=== PATIENT | female | born 1980 | race Caucasian/White ===

== ENCOUNTER 2017-06-25 14:40 | Emergency (ER) | payer MEDICAID ==
[~2017-06-25] VITALS: Ht 154.9 cm; Wt 100.0 kg
[~2017-06-25 14:40] MED LIST: ACYC-101 PO; BUPR150T3 PO; HYDR-3133 PO; LAMO100T PO; LORA10TA PO; METF500T4 PO; PANT40TA3 PO; TRAZ50TA12 PO; TRIA.1%T TOP
[2017-06-25] MEDS ORDERED: IOHEXOL 350 MG/ML 10 ML VIAL (for RAD DIAG) IVCONTRAST ONE (14:41)
[2017-06-25 14:42] VITALS: BP 143/82; PULSE 88; RESP 16; TEMP 98.5; O2SAT 96
[2017-06-25] MEDS ORDERED: TRAM50TA PO (15:30)
[2017-06-25] MEDS ORDERED: SODIUM CHLOR 0.9% 1000 ML INJ 1,000 ML IV ONE (15:38)
[2017-06-25] MEDS ORDERED: SODIUM CHLORIDE 0.9% FLUSH 10 ML FLUSH IVF PRN (15:45)
[2017-06-25] MEDS ORDERED: ONDANSETRON HCL 4 MG/2 ML VIAL IV PUSH ONE (15:45)
[2017-06-25 16:22] LABS: AUTOMATED NEUTROPHIL # 3.7 TH/MM3 (1.8-7.7); BASOPHIL # 0.1 TH/MM3 (0-0.2); EOSINOPHIL # 0.1 TH/MM3 (0-0.4); EOSINOPHIL % 1.4 % (0.0-4.0); HEMATOCRIT 34.9 % (35.0-46.0); HEMOGLOBIN 12.4 GM/DL (11.6-15.3); LYMPH % 33.2 % (9.0-44.0); LYMPHOCYTE # 2.2 TH/MM3 (1.0-4.8); MEAN CELL VOLUME 82.2 FL (80.0-100.0); MEAN CORPUSCULAR HEMOGLOBIN 29.1 PG (27.0-34.0); MEAN CORPUSCULAR HGB CONC 35.4 % (32.0-36.0); MEAN PLATELET VOLUME 9.3 FL (7.0-11.0); MONO % 7.4 % (0.0-8.0); MONOCYTE # 0.5 TH/MM3 (0-0.9); PLATELET COUNT 333 TH/MM3 (150-450); RED BLOOD COUNT 4.24 MIL/MM3 (4.00-5.30); RED CELL DISTRIBUTION WIDTH 14.1 % (11.6-17.2); WHITE BLOOD COUNT 6.5 TH/MM3 (4.0-11.0)
[2017-06-25 16:25] LABS: BILIRUBIN, URINE NEG (NEG); BLOOD, URINE LARGE (NEG); CALCIUM OXALATE CRYSTALS,URINE MOD /hpf; GLUCOSE,URINE NEG (NEG); KETONE, URINE TRACE mg/dL (NEG); MUCUS URINE FEW /lpf (OCC); NITRITE,URINE NEG (NEG); PH, URINE 5.5 (5.0-8.5); URINE COLOR YELLOW (YELLW/STRAW); URINE LEUKOCYTE ESTERASE NEG (NEG)
[2017-06-25 16:35] LABS: ALBUMIN 3.3 GM/DL (3.4-5.0); ALT (GPT) 88 U/L (10-53); AST (GOT) 68 U/L (15-37); BLOOD UREA NITROGEN 5 MG/DL (7-18); CALCIUM 8.4 MG/DL (8.5-10.1); CHLORIDE 108 MEQ/L (98-107); CREATININE 1.01 MG/DL (0.50-1.00); GLOMERULAR FILTRATION RATE 62 ML/MIN (>89); GLUCOSE,RANDOM 126 MG/DL (74-106); SODIUM (NA) 139 MEQ/L (136-145)
[2017-06-25 16:37] LABS: ALKALINE PHOSPHATASE 114 U/L (45-117); TOTAL BILIRUBIN ADULT 0.3 MG/DL (0.2-1.0)
--- NOTE | 2017-06-25 17:08 | PD ---
HPI Chief Complaint: Complaint Time Seen by Provider: 15:28 Travel History International Travel<30 days: No Contact w/Intl Traveler<30days: No Traveled to known affect area: No History of Present Illness HPI Patient is a 37-year-old female presenting to the emergency department evaluation of lower abdominal pain and cloudy urine. Patient states lower abdominal/pelvic pain started this morning at 9 AM, she rates it an 8 out of 10 , there are no alleviating or exacerbating factors. The pain is aching and sharp . She states the urine has been cloudy for a few days. She reports feeling nauseated but denies any fever, chills, vomiting or constipation. She reports that she was diagnosed with a kidney stone 3 weeks ago and feels as if she is passing one again. This was evaluated in [facility] 3 weeks ago. Past medical history significant for kidney stones, PCOS, hepatitis C. PFSH Past Medical History ADHD: Yes Bipolar Disorder: Yes Anxiety: Yes Depression: Yes High Cholesterol: Yes Diabetes: Yes Patient Takes Glucophage: Yes Hepatitis: Yes (C) Hypertension: Yes Immunizations Current: Yes Tetanus Vaccination: Unknown Influenza Vaccination: No ?: Not LMP: 06/15/17 Tubal Ligation: Yes Past Surgical History Cholecystectomy: Yes Other Surgery: Yes (breast reduction) Social History Alcohol Use: Yes (OCC) Tobacco Use: Yes Substance Use: No Allergies-Medications (Allergen,Severity, Reaction): Coded Allergies: No Known Allergies (Unverified , 06/25/17) Reported Meds & Prescriptions Reported Meds & Active Scripts Active Pantoprazole (Pantoprazole Sodium) 40 Mg Tab 40 Mg PO DAILY Bupropion HCl ER 24 HR (Bupropion HCl) 150 Mg Tab 150 Mg PO DAILY Zovirax (Acyclovir) 800 Mg Tab 800 Mg PO BID Metformin ER (Metformin HCl) 500 Mg Yesenia 500 Mg PO TID With evening meal Trazodone (Trazodone HCl) 50 Mg Tab 50 Mg PO HS Hydroxyzine HCl 25 Mg Tab 25 Mg PO BID Reported Tramadol (Tramadol HCl) 50 Mg Tab 50 Mg PO Q6H PRN Lamotrigine 100 Mg Tab 100 Mg PO DAILY Review of Systems Except as stated in HPI: all other systems reviewed are Neg HENT: No: Headaches Respiratory: No: Shortness of Breath Gastrointestinal: Positive: Nausea, Abdominal Pain, No: Vomiting, Diarrhea, Changes in Bowel Habits Genitourinary: Positive: Dysuria, Pelvic Pain Physical Exam Narrative GENERAL: Well-developed, well-nourished, well-appearing female. Resting comfortably in no acute distress. SKIN: Warm and dry. HEAD: Atraumatic. Normocephalic. EYES: Pupils equal and round. No scleral icterus. No injection or drainage. ENT: No nasal bleeding or discharge. Mucous membranes pink and moist. NECK: Trachea midline. No JVD. CARDIOVASCULAR: Regular rate and rhythm. RESPIRATORY: No accessory muscle use. Clear to auscultation. Breath sounds equal bilaterally. GASTROINTESTINAL: Abdomen soft, nontender to palpation in suprapubic region, nondistended. Hepatic and splenic margins not palpable. The bowel sounds, no rebound, no guarding. MUSCULOSKELETAL: Extremities without clubbing, cyanosis, or edema. No obvious deformities. NEUROLOGICAL: Awake and alert. No obvious cranial nerve deficits. Motor grossly within normal limits. Five out of 5 muscle strength in the arms and legs. Normal speech. PSYCHIATRIC: Appropriate mood and affect; insight and judgment normal. Data Data Last Documented VS Vital Signs Date Time Temp Pulse Resp B/P (MAP) Pulse Ox O2 Delivery O2 Flow Rate FiO2 06/25/17 15:31 17 06/25/17 14:42 98.5 88 143/82 (102) 96 Orders Orders Complete Blood Count With Diff (06/25/17 15:38) Comprehensive Metabolic Panel (06/25/17 15:38) Urinalysis - C+S If Indicated (06/25/17 15:38) Ecg Monitoring (06/25/17 15:38) Iv Access Insert/Monitor (06/25/17 15:38) Ondansetron Inj (Zofran Inj) (06/25/17 15:45) Sodium Chloride 0.9% Flush (Ns Flush) (06/25/17 15:45) Sodium Chlor 0.9% 1000 Ml Inj (Ns 1000 M (06/25/17 15:38) Ct Abd/Pel W Iv Contrast(Rout) (06/25/17 15:38) Iohexol 350 Inj (Omnipaque 350 Inj) (06/25/17 14:41) Labs Laboratory Tests Test 06/25/17 15:53 White Blood Count 6.5 TH/MM3 Red Blood Count 4.24 MIL/MM3 Hemoglobin 12.4 GM/DL Hematocrit 34.9 % Mean Corpuscular Volume 82.2 FL Mean Corpuscular Hemoglobin 29.1 PG Mean Corpuscular Hemoglobin Concent 35.4 % Red Cell Distribution Width 14.1 % Platelet Count 333 TH/MM3 Mean Platelet Volume 9.3 FL Neutrophils (%) (Auto) 57.0 % Lymphocytes (%) (Auto) 33.2 % Monocytes (%) (Auto) 7.4 % Eosinophils (%) (Auto) 1.4 % Basophils (%) (Auto) 1.0 % Neutrophils # (Auto) 3.7 TH/MM3 Lymphocytes # (Auto) 2.2 TH/MM3 Monocytes # (Auto) 0.5 TH/MM3 Eosinophils # (Auto) 0.1 TH/MM3 Basophils # (Auto) 0.1 TH/MM3 CBC Comment DIFF FINAL Differential Comment Urine Color YELLOW Urine Turbidity HAZY Urine pH 5.5 Urine Specific [place] 1.025 Urine Protein TRACE mg/dL Urine Glucose (UA) NEG mg/dL Urine Ketones TRACE mg/dL Urine Occult Blood LARGE Urine Nitrite NEG Urine Bilirubin NEG Urine Urobilinogen 2.0 MG/DL Urine Leukocyte Esterase NEG Urine RBC /hpf Urine WBC LESS THAN 1 /hpf Urine Calcium Oxalate Crystals MOD /hpf Urine Mucus FEW /lpf Microscopic Urinalysis Comment CULT NOT INDICATED Blood Urea Nitrogen 5 MG/DL Creatinine 1.01 MG/DL Random Glucose 126 MG/DL Total Protein 7.0 GM/DL Albumin 3.3 GM/DL Calcium Level 8.4 MG/DL Alkaline Phosphatase 114 U/L Aspartate Amino Transf (AST/SGOT) 68 U/L Alanine Aminotransferase (ALT/SGPT) 88 U/L Total Bilirubin 0.3 MG/DL Sodium Level 139 MEQ/L Potassium Level 4.2 MEQ/L Chloride Level 108 MEQ/L Carbon Dioxide Level 25.0 MEQ/L Anion Gap 6 MEQ/L Estimat Glomerular Filtration Rate 62 ML/MIN MDM Medical Decision Making Medical Screen Exam Complete: Yes Emergency Medical Condition: Yes Interpretation(s) Last Impressions Abdomen/Pelvis CT 06/25/17 2408 Signed Impressions: Service Date/Time: Sunday, June 25, 2017 16:30 - CONCLUSION: 1. Fatty liver. 2. Left apical adenoma. Carol Hernandez MD Laboratory Tests Test 06/25/17 15:53 White Blood Count 6.5 TH/MM3 Red Blood Count 4.24 MIL/MM3 Hemoglobin 12.4 GM/DL Hematocrit 34.9 % Mean Corpuscular Volume 82.2 FL Mean Corpuscular Hemoglobin 29.1 PG Mean Corpuscular Hemoglobin Concent 35.4 % Red Cell Distribution Width 14.1 % Platelet Count 333 TH/MM3 Mean Platelet Volume 9.3 FL Neutrophils (%) (Auto) 57.0 % Lymphocytes (%) (Auto) 33.2 % Monocytes (%) (Auto) 7.4 % Eosinophils (%) (Auto) 1.4 % Basophils (%) (Auto) 1.0 % Neutrophils # (Auto) 3.7 TH/MM3 Lymphocytes # (Auto) 2.2 TH/MM3 Monocytes # (Auto) 0.5 TH/MM3 Eosinophils # (Auto) 0.1 TH/MM3 Basophils # (Auto) 0.1 TH/MM3 CBC Comment DIFF FINAL Differential Comment Urine Color YELLOW Urine Turbidity HAZY Urine pH 5.5 Urine Specific [place] 1.025 Urine Protein TRACE mg/dL Urine Glucose (UA) NEG mg/dL Urine Ketones TRACE mg/dL Urine Occult Blood LARGE Urine Nitrite NEG Urine Bilirubin NEG Urine Urobilinogen 2.0 MG/DL Urine Leukocyte Esterase NEG Urine RBC /hpf Urine WBC LESS THAN 1 /hpf Urine Calcium Oxalate Crystals MOD /hpf Urine Mucus FEW /lpf Microscopic Urinalysis Comment CULT NOT INDICATED Blood Urea Nitrogen 5 MG/DL Creatinine 1.01 MG/DL Random Glucose 126 MG/DL Total Protein 7.0 GM/DL Albumin 3.3 GM/DL Calcium Level 8.4 MG/DL Alkaline Phosphatase 114 U/L Aspartate Amino Transf (AST/SGOT) 68 U/L Alanine Aminotransferase (ALT/SGPT) 88 U/L Total Bilirubin 0.3 MG/DL Sodium Level 139 MEQ/L Potassium Level 4.2 MEQ/L Chloride Level 108 MEQ/L Carbon Dioxide Level 25.0 MEQ/L Anion Gap 6 MEQ/L Estimat Glomerular Filtration Rate 62 ML/MIN Vital Signs Date Time Temp Pulse Resp B/P (MAP) Pulse Ox O2 Delivery O2 Flow Rate FiO2 06/25/17 15:31 17 06/25/17 14:42 98.5 88 16 143/82 (102 96 Differential Diagnosis UTI versus kidney stone versus pyelonephritis versus metabolic abnormality versus other Narrative Course Patient presented for evaluation of possible kidney stone, she had the same symptoms 3 weeks ago. Her vital signs are stable, labs and imaging ordered and pending. Abdominal exam is unimpressive. LMP was 06/15/17. She was given a liter of IV fluids, Zofran. Labs reviewed, no acute findings identified. Urinalysis has calcium oxalate crystals in it otherwise it is not consistent with a urinary tract infection. CT scan of the abdomen and pelvis a fatty liver and an apical adenoma. Otherwise there are no acute findings to correlate with patient's pain. Discussed with patient that her initial work-up was unremarkable. Further offered a pelvic exam as her pain maybe related to a gynecological etiology. Pt declined pelvic exam at this time. She requested pain medication for home. Pt was given strict return precautions. She is reliable and states she will return is any new or worsening symptoms develop. Pt is stable for discharge. Diagnosis Primary Impression: Abdominal pain Qualified Codes: R10.9 - Unspecified abdominal pain Referrals: Maira Arthur MD, R3 2 days Patient Instructions: Abdominal Pain (ED), General Instructions Additional Instructions: Follow-up with your primary doctor Return to the emergency department immediately for any new or worsening symptoms Take medications as directed, do not drive or operate machinery while taking pain medication Med/Other Pt SpecificInfo: Prescription(s) given Scripts Ondansetron Odt (Zofran Odt) 4 Mg Tab 4 MG SL Q6HR Y for Nausea/Vomiting, #12 TAB 0 Refills Prov: Sophie Temple 06/25/17 Acetaminophen-Codeine (Tylenol-Codeine #3) 300-30 mg Tab 1 TAB PO Q4H Y for PAIN, #12 TAB 0 Refills Prov: Sophie Temple 06/25/17 Disposition: 01 DISCHARGE HOME Condition: Stable Sophie Temple Jun 25, 2017 17:07
--- NOTE | 2017-06-25 17:21 | RADRPT ---
EXAM DATE/TIME: 06/25/2017 16:30 [place] COMPARISON: No previous studies available for comparison. INDICATIONS : Right flank lower qaudrant pain. Renal stone 3 weeks ago. IV CONTRAST: 95 cc Omnipaque 350 (iohexol) IV ORAL CONTRAST: No oral contrast ingested. RADIATION DOSE: 21.97 CTDIvol (mGy) MEDICAL HISTORY : Hypertension. Renal calculi. Hepatitis C. SURGICAL HISTORY : Cholecystectomy. Tubal ligation. ENCOUNTER: Initial ACUITY: 1 day PAIN SCALE: 7/10 LOCATION: Right lower quadrant flank TECHNIQUE: Volumetric scanning of the abdomen and pelvis was performed. Using automated exposure control and ad justment of the mA and/or kV according to patient size, radiation dose was kept as low as reasonably achievable to obtain optimal diagnostic quality images. DICOM format image data is available electro nically for review and comparison. FINDINGS: CT Abdomen: The liver is fatty without focal lesions or technique. The spleen, pancreas, kidneys, rig ht adrenal are unremarkable. Approximate 2.2 cm low attenuating mass is present in the left adrenal g land most likely an adenoma. There is no evidence for any appreciable pathological adenopathy, free f luid, or bowel obstruction. There is no evidence for any stones in the kidneys or the course of the ureters on either side. There is no hydronephrosis. CT pelvis: There is no evidence for mass, abscess formation, or any significant adenopathy within the pelvis. There is sclerosis involving the left SI joint chronic in nature. There are clips in the pel vis probably from prior tubal ligation. CONCLUSION: 1. Fatty liver. 2. Left apical adenoma. Carol Hernandez MD on June 25, 2017 at 17:14 Board Certified Radiologist. This report was verified electronically.
[2017-06-25] MEDS ORDERED: TYLETAB34 PO (17:41)
[2017-06-25] MEDS ORDERED: ZOFR4TAB3 SL (17:41)
[2017-06-26] MEDS ORDERED: TAMS0.4C4 PO (16:41)
[2017-06-26] MEDS ORDERED: PHEN-525 PO (16:49)
[2017-06-29] MEDS ORDERED: DIFL150T PO (14:08)
[2017-06-29] MEDS ORDERED: NITR1CAP36 PO (14:12)
[2017-06-29] MEDS ORDERED: NITR100C4 PO (15:52)
== END 2017-06-25 18:31 | disposition home or self-care (01) ==
LOC: NEPD 14:40
DX: R10.9 Unspecified abdominal pain (principal); K76.0 Fatty (change of) liver, not elsewhere classified; E28.2 Polycystic ovarian syndrome; B19.20 Unspecified viral hepatitis C without hepatic coma; E11.9 Type 2 diabetes mellitus without complications; I10 Essential (primary) hypertension; F31.9 Bipolar disorder, unspecified; E78.00 Pure hypercholesterolemia, unspecified; Z87.442 Personal history of urinary calculi
CPT/HCPCS: 74177; 80053; 81001; 85025; 96374; 99285; J2405; J7030; Q9967